=== PATIENT | female | born 1985 | race Caucasian/White ===

== ENCOUNTER 2016-11-19 16:37 | Emergency (ER) | payer OTHER | END 2016-11-19 18:40 | disposition home or self-care (01) | LOC: ER1 16:37 | DX: J45.901 Unspecified asthma with (acute) exacerbation (principal); Z79.899 Other long term (current) drug therapy | CPT/HCPCS: 71020; 84703; 94640; 94664; 99285; J2930 ==

== ENCOUNTER → 2021-12-12 | Outpatient (CLI) | payer OTHER ==
[~2021-12-12] MED LIST: AZITHROMYCIN500 MG PO; DOXYCYCLINE MO100 MG PO; DULERA 200 MCG8.8 GM INH; FLEXERIL 10 MG10 MG PO; MEDROL4 MG PO; OMNICEF 300 MG300 MG PO; PREDNISONE 50 M50 MG PO; PREDNISONE20 MG PO; PRILOSEC10 M1 PO; PROAIR HFA8.5 GM INH; SINGULAIR10 MG PO; SYNTHROID 25 M25 MCG PO; VENTOLIN HFA 66.7 GM INH; VIBRAMYCIN100 MG PO; VITAMIN D400 UNI2 PO; VOLTAREN EC 5050 MG PO; WELLBUTRIN SR150 M1 PO; ZANTAC150 MG PO; ZITHROMAX250 MG PO
== END ==
LOC: KOH-I 11-27 13:30
DX: J32.9 Chronic sinusitis, unspecified (principal)
CPT/HCPCS: 70486